=== PATIENT | female | born 1985 | race Caucasian/White ===

== ENCOUNTER 2018-02-18 11:07 | Emergency (ER) | payer OTHER ==
[2018-02-18 11:29] VITALS: BP 123/76; PULSE 74; RESP 18; TEMP 97.8; O2SAT 98
--- NOTE | 2018-02-18 12:22 | ED PDOC ---
HPI: Allergic Reaction Time Seen by Provider: 02/18/18 12:11 Chief Complaint (Nursing): Allergic Reaction Chief Complaint (Provider): itchy rash History Per: Patient History/Exam Limitations: no limitations Current Symptoms Are (Timing): Still Present Additional Complaint(s): 32 year old female presents to the ED for an evaluation of itchy rash x 2 days. Patient states she ate chocolate from a vending machine at work on Thursday and later noticed it was 6 months ago. She is not sure if this is the cause of the rash. Patient has been taking benadryl which has provided minimal relief. She denies using any new perfume, lotions, soaps, detergents, meds, vitamins or supplements. No fever or chills, no throat discomfort or shortness or breath. PMD: none Past Medical History Reviewed: Historical Data, Nursing Documentation, Vital Signs Vital Signs: Last Vital Signs Temp 97.8 F 02/18/18 11:26 Pulse 74 02/18/18 11:26 Resp 18 02/18/18 11:26 BP 123/76 02/18/18 11:26 Pulse Ox 98 02/18/18 11:26 - Medical History PMH: No Chronic Diseases - Surgical History Surgical History: (2) - Family History Family History: States: No Known Family Hx - Living Arrangements Living Arrangements: With Family - Social History Current smoker - smoking cessation education provided: Yes Alcohol: None Drugs: Denies - Home Medications Home Medications: Ambulatory Orders Medication Instructions Recorded Prednisone 50 mg PO DAILY #5 tablet 02/18/18 - Allergies Allergies/Adverse Reactions: Allergies Allergy/AdvReac Type Severity Reaction Status Date / Time No Known Allergies Allergy Verified 02/18/18 11:29 Review of Systems ROS Statement: Except As Marked, All Systems Reviewed And Found Negative Constitutional: Negative for: Fever, Chills ENT: Negative for: Throat Pain, Throat Swelling Respiratory: Negative for: Shortness of Breath Skin: Positive for: Rash Physical Exam - Reviewed Nursing Documentation Reviewed: Yes Vital Signs Reviewed: Yes - Physical Exam Appears: Positive for: Well, Non-toxic, No Acute Distress Skin: Positive for: Rash (diffuse urticarial rash to entire body ) Eye Exam: Positive for: Normal appearance Cardiovascular/Chest: Positive for: Regular Rate, Rhythm Respiratory: Positive for: Normal Breath Sounds. Negative for: Respiratory Distress Extremity: Positive for: Normal ROM Neurologic/Psych: Positive for: Alert, Oriented (x3) - Laboratory Results Urine POC: Negative - ECG O2 Sat by Pulse Oximetry: 98 (RA) Pulse Ox Interpretation: Normal Disposition - Clinical Impression Clinical Impression: Urticaria - Patient ED Disposition Is Patient to be Admitted: No Counseled Patient/Family Regarding: Diagnosis, Need For Followup, Rx Given, Smoking Cessation - Disposition [facility]errals: [facility] [Outside] Disposition: Routine/Home Disposition Time: 12:21 Condition: STABLE Additional Instructions: Take rx meds as directed. Take 10 mg tablet of claritin daily, available over the counter without prescription. Take 2 tabs benadryl before bed. If symptoms persist follow up with wrapper sheeter. Prescriptions: Prednisone 50 mg PO DAILY #5 tablet Instructions: Tom (DC) Forms: [employer] (Ugandan), [facility] ED School/Work Excuse Medical Decision Making Medical Decision Making: Time: 1220 Initial Impression: 32 year old female with urticarial rash Initial Plan: --Patient given predniSONE 60mg in ED Rx given for prednisone, she was instructed to continue with Benadryl. Advised follow up with wrapper sheeter for any persistent symptoms. Scribe Attestation: Documented by Gino Gabriel, acting as a scribe for Stephanie Bundy PA-C Provider Scribe Attestation: All medical record entries made by the Scribe were at my direction and personally dictated by me. I have reviewed the chart and agree that the record accurately reflects my personal performance of the history, physical exam, medical decision making, and the department course for this patient. I have also personally directed, reviewed, and agree with the discharge instructions and disposition.
[2018-02-18] MEDS ORDERED: Albuterol-Ipratrop 3 mg / 0.5 (3 ml) UD ONE (15:46)
== END 2018-02-18 13:20 | disposition home or self-care (01) ==
LOC: H.ER 11:07
DX: L50.0 Allergic urticaria (principal)